=== PATIENT | female | born 1955 | race Caucasian/White ===

== ENCOUNTER → 2017-01-28 | Outpatient (CLI) | payer OTHER ==
--- NOTE | 2017-01-28 12:56 | US ---
EXAMINATION TYPE: US pelvic complete DATE OF EXAM: 01/28/2017 11:20 AM COMPARISON: NONE CLINICAL HISTORY: 61-year-old female R10.2 Pelvic Pain. Patient reports on/off pelvic pain TECHNIQUE: Multiple transabdominal sonographic images of the pelvis are obtained. Date of LMP: age 39 FINDINGS: Uterus: Anteverted measuring 7.0 x 1.7 x 2.9 cm Endometrial Stripe: 0.3 cm thin, within normal limits. Right Ovary: 2.1 x 1.2 x 1.4 cm for a volume of 1.9 mL. Left Ovary: 1.9 x 1.4 x 1.9 cm for a volume of 2.5 mL. No evident adnexal abnormality or cul-de-sac free fluid. IMPRESSION: Thin endometrial stripe and small postmenopausal ovaries. No specific abnormality seen on transabdomi nal scanning.
--- NOTE | 2017-01-31 08:04 | MM ---
Reason for exam: screening (asymptomatic). Baseline mammogram. History: Patient is postmenopausal. Took estrogen for 3 years beginning at age 36. Took progesterone for 3 years beginning at age 36. Physical Findings: Nurse did not find any significant physical abnormalities on exam. MG 3D Screening Mammo W/Cad Bilateral CC and MLO view(s) were taken. There are scattered fibroglandular densities. Nodular asymmetry subareolar anterior left breast not clearly seen on MLO view. Skin calcifications on the left breast. Otherwise, no discrete abnormality. These results were verbally communicated with the patient and result sheet given to the patient on 01/28/17. ASSESSMENT: Incomplete: need additional imaging evaluation, BI-RAD 0 RECOMMENDATION: Special view mammogram of the left breast. If lesion persists on supplemental views, image directed ultrasound is recommended. [facility] will attempt to contact patient to return for supplemental views and ultrasound if indicated.
--- NOTE | 2017-01-31 08:06 | MM ---
Reason for exam: additional evaluation requested from abnormal screening. History: Patient is postmenopausal. Took estrogen for 3 years beginning at age 36. Took progesterone for 3 years beginning at age 36. Physical Findings: Breast exam preformed at baseline screening. MG 3D Work Up W/Cad LT ML view(s) were taken of the left breast. There are scattered fibroglandular densities. A 6mm ovoid mass is subtly seen on the true lateral along the retroareolar plane approximately 5-6 o'clock. These results were verbally communicated with the patient and result sheet given to the patient on 01/28/17. ASSESSMENT: Incomplete: need additional imaging evaluation, BI-RAD 0 RECOMMENDATION: Ultrasound of the left breast. (periareolar 5-6 o'clock)
--- NOTE | 2017-01-31 08:09 | USB ---
Reason for exam: additional evaluation requested from abnormal screening. History: Patient is postmenopausal. Took estrogen for 3 years beginning at age 36. Took progesterone for 3 years beginning at age 36. US Breast Workup Limited LT Left breast ultrasound demonstrates ducts at the posterior nipple. No solid or cystic mass is seen. A 6 month follow mammogram recommended. These results were verbally communicated with the patient and result sheet given to the patient on 01/28/17. ASSESSMENT: Probably benign, BI-RAD 3 RECOMMENDATION: Follow-up diagnostic mammogram of the left breast in 6 months.
== END ==
LOC: RADUSWWP 08:48
PROVIDERS: ATTEND Family Medicine
DX: R10.2 Pelvic and perineal pain (principal); N63 Unspecified lump in breast
CPT/HCPCS: 77063; 76856; 76642; G0202; G0206; G0279

== ENCOUNTER 2017-10-08 16:51 | Emergency (ER) | payer BC, OTHER ==
[2017-10-08 17:04] VITALS: BP 159/67; PULSE 82; RESP 20; TEMP 97.8
--- NOTE | 2017-10-08 17:42 | ED ---
Anxiety HPI - General Chief Complaint: Anxiety Stated Complaint: Hypertension Time Seen by Provider: 10/08/17 17:16 Source: patient, RN notes reviewed Mode of arrival: ambulatory - History of Present Illness Initial Comments: 62-year-old female presents emergency Department chief complaint of anxiety. Patient states that she has a history of anxiety states she has not had sick medication several years. Patient states that she cannot fall asleep last night Worrying about things states that she will probably fell asleep and woke up cannot sleep she was wearing a can. She states she is concerned physician when checked her blood pressure blood pressure is mildly elevated. Patient was in the hospital within this last month for chest pain had complete workup including stress test. Patient findings. Patient states she has no chest pain or shortness breath no headache no dizziness no fever no chills. She states she just morning and states that when she went to the drugstore to check her blood pressure the pharmacist worried her more. Patient states that she fell that she come here to get some help. Patient denies suicidal ideation or homicidal ideation. - Related Data Home Medications: Home Medications Medication Instructions Recorded Confirmed Glucosam/Darnell-Msm1/C/Zach/Bosw 1 tab PO DAILY 09/08/17 09/08/17 [Glucosamine-Chondroitin Tablet] L.acidoph,Paracasei, B.lactis 1 cap PO DAILY 09/08/17 09/08/17 [Probiotic] Multivitamin [Multivitamins Adult 1 tab PO DAILY 09/08/17 09/08/17 Gummies] Previous Rx's Medication Instructions Recorded Levothyroxine Sodium [Synthroid] 50 mcg PO DAILY@0630 #30 tab 09/09/17 Acetaminophen Tab [Tylenol] 500 mg PO Q6HR PRN tab 09/10/17 ALPRAZolam [Xanax] 0.5 mg PO BID PRN #10 tablet 10/08/17 Allergies/Adverse Reactions: Allergies Allergy/AdvReac Type Severity Reaction Status Date / Time seasonal allergies AdvReac Cough Uncoded 10/08/17 17:04 Review of Systems ROS Statement: Those systems with pertinent positive or pertinent negative responses have been documented in the HPI. ROS Other: All systems not noted in ROS Statement are negative. Past Medical History Past Medical History: Hypertension, Memory Impairment, Osteoarthritis (OA) Additional Past Medical History / Comment(s): One episode of high B/P never treated, large lump left breast, chronic neck pain History of Any Multi-Drug Resistant Organisms: None Reported Past Surgical History: Section Additional Past Surgical History / Comment(s): X3, rectal surgery for an infection Past Anesthesia/Blood Transfusion Reactions: No Reported Reaction Past Psychological History: Anxiety Smoking Status: Former smoker Past Alcohol Use History: Occasional Past Drug Use History: None Reported - Past Family History Mother Family Medical History: Coronary Artery Disease (CAD) Sister(s) Family Medical History: AFIB, Myocardial Infarction ([place]) Father Family Medical History: Cancer Additional Family Medical History / Comment(s): from pancreatic CA General Exam Limitations: no limitations General appearance: alert, in no apparent distress Head exam: Present: atraumatic, normocephalic, normal inspection Eye exam: Present: normal appearance, PERRL, EOMI. Absent: scleral icterus, conjunctival injection, periorbital swelling ENT exam: Present: normal exam, normal oropharynx, mucous membranes moist, TM's normal bilaterally, normal external ear exam Neck exam: Present: normal inspection, full ROM. Absent: tenderness, meningismus, lymphadenopathy Respiratory exam: Present: normal lung sounds bilaterally. Absent: respiratory distress, wheezes, rales, rhonchi, stridor Cardiovascular Exam: Present: regular rate, normal rhythm, normal heart sounds. Absent: systolic murmur, diastolic murmur, rubs, gallop, clicks Neurological exam: Present: alert, oriented X3, CN II-XII intact Psychiatric exam: Present: anxious Skin exam: Present: warm, dry, intact, normal color. Absent: rash Course Vital Signs 10/08/17 17:01 Temperature 97.8 F Pulse Rate 82 Respiratory 20 Rate Blood Pressure 159/67 O2 Sat by Pulse 98 Oximetry Medical Decision Making - Medical Decision Making 62-year-old female presented emergency department for anxiety. Patient be discharged with Xanax. Patient requests EKG which was unchanged from prior. Patient had complete cardiac workup with stress test within the beginning of this month. Patient has no chest pain or shortness breath. Patient was discharged at this time. 10/08/17 17:40 EKG performed at 17:28 normal sinus rhythm with rate 69 TN 146 QRS 88 QT/QTC 380 /4:15 Disposition Clinical Impression: Acute anxiety Disposition: HOME SELF-CARE Condition: Stable Instructions: Generalized Anxiety Disorder (ED) Additional Instructions: Please return to the Emergency Department if symptoms worsen or any other concerns. Prescriptions: ALPRAZolam [Xanax] 0.5 mg PO BID PRN #10 tablet PRN Reason: Anxiety Referrals: Fabiola Collier MD [Primary Care Provider] - 1-2 days Time of Disposition: 17:41
== END 2017-10-08 17:48 | disposition home or self-care (01) ==
LOC: EC 16:51
DX: F41.9 Anxiety disorder, unspecified (principal); M19.90 Unspecified osteoarthritis, unspecified site; I10 Essential (primary) hypertension; Z82.49 Family history of ischemic heart disease and other diseases of the circulatory system; Z91.09 Other allergy status, other than to drugs and biological substances; Z87.891 Personal history of nicotine dependence; Z79.899 Other long term (current) drug therapy
CPT/HCPCS: 93005; 99283

== ENCOUNTER 2018-08-13 16:23 | Emergency (ER) | payer OTHER ==
[2018-08-13 16:31] VITALS: RESP 18
--- NOTE | 2018-08-13 16:42 | ED ---
Chest Pain HPI - General Chief Complaint: Chest Pain Stated Complaint: chest pain Time Seen by Provider: 08/13/18 16:23 Source: patient, EMS, RN notes reviewed, old records reviewed Mode of arrival: EMS Limitations: no limitations - History of Present Illness Initial Comments: This a 63-year-old female who was brought by EMS with complaints of left-sided chest pain. She had 2 episodes yesterday that were brief and sharp mild/ moderate in severity. She also had another episode today. EMS was called last night but she refused transport at that time. She currently is pain-free she has no fevers chills nausea vomiting sweats. She has been doing a lot of upper body activity she is primarily right-handed but does do a lot of activity with her left arm. MD Complaint: chest pain - Related Data Home Medications Medication Instructions Recorded Confirmed L.acidoph,Paracasei, B.lactis 1 cap PO DAILY 09/08/17 10/08/17 [Probiotic] Levothyroxine Sodium [Synthroid] 50 mcg PO DAILY 10/08/17 10/08/17 Previous Rx's Medication Instructions Recorded ALPRAZolam [Xanax] 0.5 mg PO BID PRN #10 tablet 10/08/17 Ibuprofen [Motrin] 600 mg PO Q6HR PRN #20 tab 08/13/18 Allergies Allergy/AdvReac Type Severity Reaction Status Date / Time seasonal allergies AdvReac Cough Uncoded 08/13/18 16:30 Review of Systems ROS Statement: Those systems with pertinent positive or pertinent negative responses have been documented in the HPI. ROS Other: All systems not noted in ROS Statement are negative. EKG Findings - EKG Results: EKG: interpreted by CHRIS, sinus rhythm (Sinus bradycardia rate of 59. Interval 138 QRS duration 86 QT since QTC 398/[address]-T wave changes) Past Medical History Past Medical History: Hypertension, Memory Impairment, Osteoarthritis (OA) Additional Past Medical History / Comment(s): One episode of high B/P never treated, large lump left breast, chronic neck pain History of Any Multi-Drug Resistant Organisms: None Reported Past Surgical History: Section Additional Past Surgical History / Comment(s): X3, rectal surgery for an infection Past Anesthesia/Blood Transfusion Reactions: No Reported Reaction Past Psychological History: Anxiety Smoking Status: Former smoker Past Alcohol Use History: Occasional Past Drug Use History: None Reported - Past Family History Mother Family Medical History: Coronary Artery Disease (CAD) Sister(s) Family Medical History: AFIB, Myocardial Infarction ([place]) Father Family Medical History: Cancer Additional Family Medical History / Comment(s): from pancreatic CA General Exam - General Exam Comments Initial Comments: This is a well-developed well-nourished awake alert oriented 3 female Limitations: no limitations General appearance: alert, in no apparent distress Head exam: Present: atraumatic, normocephalic, normal inspection Eye exam: Present: normal appearance, PERRL, EOMI. Absent: scleral icterus, conjunctival injection, periorbital swelling ENT exam: Present: normal exam, mucous membranes moist Neck exam: Present: normal inspection, tenderness, full ROM (Tenderness of the left lateral neck musculature no spinous process tenderness. No step-off no crepitation.). Absent: meningismus, lymphadenopathy Respiratory exam: Present: normal lung sounds bilaterally, chest wall tenderness (Tennis palpation on the left anterior axillary line no step-off or crepitation mostly to the pectoralis muscle. No deformity no bruising). Absent : respiratory distress, wheezes, rales, rhonchi, stridor Cardiovascular Exam: Present: regular rate, normal rhythm, normal heart sounds. Absent: systolic murmur, diastolic murmur, rubs, gallop, clicks GI/Abdominal exam: Present: soft, normal bowel sounds. Absent: distended, tenderness, guarding, rebound, rigid Extremities exam: Present: normal inspection, full ROM, normal capillary refill. Absent: tenderness, pedal edema, joint swelling, calf tenderness Back exam: Present: normal inspection Neurological exam: Present: alert, oriented X3, CN II-XII intact Psychiatric exam: Present: normal affect, normal mood Skin exam: Present: warm, dry, intact, normal color. Absent: rash Course Vital Signs 08/13/18 16:26 Temperature 98.6 F Pulse Rate 69 Respiratory 18 Rate Blood Pressure 128/76 O2 Sat by Pulse 98 Oximetry Chest Pain MDM - MDM I did review the imaging and report no acute findings. Patient remained symptom -free the presentation is consistent with musculoskeletal chest pain. She will be discharged on anti-inflammatories she is a follow-up with her doctor and return when necessary. Disposition Clinical Impression: Chest wall syndrome, Myofascial pain Disposition: HOME SELF-CARE Condition: Good Instructions: Chest Wall Pain (ED), Musculoskeletal Pain (ED) Prescriptions: Ibuprofen [Motrin] 600 mg PO Q6HR PRN #20 tab PRN Reason: Pain Is patient prescribed a controlled substance at d/c from ED?: No Referrals: Fabiola Collier MD [Primary Care Provider] - 1-2 days
[2018-08-13 16:51] LABS: Basophils % (A) 0 %; Eosinophils # (A) 0.1 k/uL (0-0.7); Eosinophils % (A) 2 %; HCT 42.6 % (34.0-46.0); Lymphocytes # (A) 1.5 k/uL (1.0-4.8); Lymphocytes % (A) 26 %; MCH 27.6 pg (25.0-35.0); MCHC 32.9 g/dL (31.0-37.0); Mean Platelet Volume 7.3; Monocytes # (A) 0.3 k/uL (0-1.0); Monocytes % (A) 6 %; Neutrophils # (A) 3.7 k/uL (1.3-7.7); Neutrophils % (A) 65 %; Platelet Count 193 k/uL (150-450); RBC 5.08 m/uL (3.80-5.40); RDW 12.6 % (11.5-15.5); WBC 5.7 k/uL (3.8-10.6)
[2018-08-13 17:01] LABS: ALT 25 U/L (9-52); AST 24 U/L (14-36); Albumin 4.2 g/dL (3.5-5.0); Alkaline Phosphatase 63 U/L (38-126); Anion Gap 7 mmol/L; Blood Urea Nitrogen 16 mg/dL (7-17); Carbon Dioxide 28 mmol/L (22-30); Chloride 106 mmol/L (98-107); Glucose 99 mg/dL (74-99); Potassium 4.2 mmol/L (3.5-5.1); Sodium 141 mmol/L (137-145); Total Bilirubin 0.9 mg/dL (0.2-1.3); Total Protein 7.1 g/dL (6.3-8.2)
--- NOTE | 2018-08-13 17:02 | XR ---
EXAMINATION TYPE: XR chest 2V DATE OF EXAM: 08/13/2018 COMPARISON: 09/08/2017 INDICATION: Chest pain and shortness of breath TECHNIQUE: Frontal and lateral views of the chest are obtained. FINDINGS: The heart size is normal. The pulmonary vasculature is normal. The lungs are clear. IMPRESSION: 1. No acute pulmonary process.
[2018-08-13 17:06] LABS: Creatine Kinase 59 U/L (30-135)
[2018-08-13 17:13] LABS: D-Dimer 0.34 mg/L FEU (<0.60)
[2018-08-13 17:16] LABS: Partial Thromboplastin Time 19.3 sec (22.0-30.0)
[2018-08-13 17:19] LABS: Creatine Kinase MB 0.8 ng/mL (0.0-2.4); Troponin I <0.012 ng/mL (0.000-0.034)
[2018-08-13 18:17] VITALS: BP 118/69; PULSE 62; TEMP 98.1
== END 2018-08-13 18:15 | disposition home or self-care (01) ==
LOC: EC 16:23
DX: R07.1 Chest pain on breathing (principal); M79.18 Myalgia, other site; Z87.891 Personal history of nicotine dependence; Z79.899 Other long term (current) drug therapy; Z91.048 Other nonmedicinal substance allergy status; Z82.49 Family history of ischemic heart disease and other diseases of the circulatory system
CPT/HCPCS: 36415; 71046; 80053; 82550; 82553; 83735; 83880; 84484; 85025; 85379; 85610; 85730; 93005; 99285

== ENCOUNTER 2019-07-21 03:59 | Observation (INO) | payer OTHER ==
--- NOTE | 2019-07-21 04:09 | ED ---
General Adult HPI - General Stated complaint: Chest Pain Time Seen by Provider: 07/21/19 04:06 - History of Present Illness Initial comments: Dictation was produced using [employer] dictation software. please excuse any grammatical, word or spelling errors. Chief Complaint: 64-year-old female presents with chief complaint of chest pain History of Present Illness: Patient is a 64-year-old female presents today via EMS for chest pain. Patient has past medical history of hypertension. Patient states she had episode of chest pain. She woke up in her sleep to walk to the bathroom when she began experiencing a dull chest pain to the left anterior chest. She states it radiated to the left upper extremity. Patient has been having a lot of abdominal bloating recently. Patient has had cardiac stress test over those most recently 2 years ago. Patient is concerned called EMS. Patient states her symptoms lasted only for a couple minutes and resolved on its own. Patient that she was mildly diaphoretic during the event. Denies any chest pain currently. Patient otherwise feels well. She is concerned she is may be having heart attack. Prehospital EKG was benign. Patient is given aspirin via EMS. The ROS documented in this emergency department record has been reviewed and confirmed by me. Those systems with pertinent positive or negative responses have been documented in the HPI. All other systems are other negative and/or noncontributory. PHYSICAL EXAM: General Impression: Alert and oriented x3, not in acute distress HEENT: Normocephalic atraumatic, extra-ocular movements intact, pupils equal and reactive to light bilaterally, mucous membranes moist. Cardiovascular: Heart regular rate and rhythm, S1&S2 audible, no murmurs, rubs or gallops Chest: Lungs clear to auscultation bilaterally, no rhonchi, no wheeze, no rales Abdomen: Bowel sounds present, abdomen soft, non-tender, non-distended, no organomegaly Musculoskeletal: Pulses present and equal in all extremities, no peripheral edema Motor: no focal deficits noted Neurological: CN II-XII grossly intact, no focal motor or sensory deficits noted Skin: Intact with no visualized rashes Psych: Normal affect and mood ED course: 64-year-old female with chief complaint of chest pain. As upon arrival are within acceptable limits. Clinical presentation consistent with atypical chest pain with typical features. Return evaluation obtained. CBC, coag panel, metabolic panel was obtained showing no acute processes. Cardiac enzyme, first set is unremarkable. Patient still continues to be pain-free. Given patient's comorbidities and clinical presentation we will admit patient to observation for serial troponins and cardiology consultation. She received an aspirin prior to transfer to the emergency department. Patient understandable agreeable to disposition. EKG interpretation: Ventricular rate 62, normal sinus rhythm, MA interval 140, QS 92, QTC 46. No MA prolongation, no QTC prolongation, no ST or T-wave changes noted. Overall, this EKG is unremarkable - Related Data Home Medications Medication Instructions Recorded Confirmed L.acidoph,Paracasei, B.lactis 1 cap PO DAILY 09/08/17 10/08/17 [Probiotic] Levothyroxine Sodium [Synthroid] 50 mcg PO DAILY 10/08/17 10/08/17 Previous Rx's Medication Instructions Recorded ALPRAZolam [Xanax] 0.5 mg PO BID PRN #10 tablet 10/08/17 Ibuprofen [Motrin] 600 mg PO Q6HR PRN #20 tab 08/13/18 Allergies Allergy/AdvReac Type Severity Reaction Status Date / Time seasonal allergies AdvReac Cough Uncoded 08/13/18 16:30 Review of Systems ROS Statement: Those systems with pertinent positive or pertinent negative responses have been documented in the HPI. ROS Other: All systems not noted in ROS Statement are negative. Past Medical History Past Medical History: Hypertension, Memory Impairment, Osteoarthritis (OA) Additional Past Medical History / Comment(s): One episode of high B/P never treated, large lump left breast, chronic neck pain History of Any Multi-Drug Resistant Organisms: None Reported Past Surgical History: Section Additional Past Surgical History / Comment(s): X3, rectal surgery for an infection Past Anesthesia/Blood Transfusion Reactions: No Reported Reaction Past Psychological History: Anxiety Smoking Status: Former smoker Past Alcohol Use History: Occasional Past Drug Use History: None Reported - Past Family History Mother Family Medical History: Coronary Artery Disease (CAD) Sister(s) Family Medical History: AFIB, Myocardial Infarction ([place]) Father Family Medical History: Cancer Additional Family Medical History / Comment(s): from pancreatic CA Course Vital Signs 07/21/19 07/21/19 07/21/19 04:08 04:12 04:55 Temperature 98.2 F Pulse Rate 68 56 L Pulse Rate [ 68 Radio Announcer ] Respiratory 18 20 Rate Blood Pressure 140/79 120/65 O2 Sat by Pulse 97 97 Oximetry Medical Decision Making - Lab Data Result diagrams: 07/21/19 04:07 07/21/19 04:07 Lab Results 07/21/19 07/21/19 07/21/19 Range/Units 04:07 04:07 04:07 WBC 5.1 (3.8-10.6) k/uL RBC 5.02 (3.80-5.40) m/uL Hgb 14.0 (11.4-16.0) gm/dL Hct 42.9 (34.0-46.0) % MCV 85.3 (80.0-100.0) fL MCH 27.9 (25.0-35.0) pg MCHC 32.7 (31.0-37.0) g/dL RDW 12.8 (11.5-15.5) % Plt Count 204 (150-450) k/uL Neutrophils % 48 % Lymphocytes % 36 % Monocytes % 7 % Eosinophils % 4 % Basophils % 1 % Neutrophils # 2.5 (1.3-7.7) k/uL Lymphocytes # 1.9 (1.0-4.8) k/uL Monocytes # 0.4 (0-1.0) k/uL Eosinophils # 0.2 (0-0.7) k/uL Basophils # 0.1 (0-0.2) k/uL PT 10.0 (9.0-12.0) sec INR 0.9 (<1.2) APTT 22.3 (22.0-30.0) sec Sodium 141 (137-145) mmol/L Potassium 4.0 (3.5-5.1) mmol/L Chloride 108 H (98-107) mmol/L Carbon Dioxide 24 (22-30) mmol/L Anion Gap 9 mmol/L BUN 22 H (7-17) mg/dL Creatinine 0.89 (0.52-1.04) mg/dL Est GFR (CKD-EPI)AfAm 79 (>60 ml/min/1.73 sqM) Est GFR (CKD-EPI)NonAf 69 (>60 ml/min/1.73 sqM) Glucose 113 H (74-99) mg/dL Calcium 9.7 (8.4-10.2) mg/dL Magnesium 2.1 (1.6-2.3) mg/dL Total Bilirubin 0.7 (0.2-1.3) mg/dL AST 43 H (14-36) U/L ALT 61 H (9-52) U/L Alkaline Phosphatase 72 (38-126) U/L Troponin I (0.000-0.034) ng/mL Total Protein 6.7 (6.3-8.2) g/dL Albumin 3.9 (3.5-5.0) g/dL 07/21/19 Range/Units 04:07 WBC (3.8-10.6) k/uL RBC (3.80-5.40) m/uL Hgb (11.4-16.0) gm/dL Hct (34.0-46.0) % MCV (80.0-100.0) fL MCH (25.0-35.0) pg MCHC (31.0-37.0) g/dL RDW (11.5-15.5) % Plt Count (150-450) k/uL Neutrophils % % Lymphocytes % % Monocytes % % Eosinophils % % Basophils % % Neutrophils # (1.3-7.7) k/uL Lymphocytes # (1.0-4.8) k/uL Monocytes # (0-1.0) k/uL Eosinophils # (0-0.7) k/uL Basophils # (0-0.2) k/uL PT (9.0-12.0) sec INR (<1.2) APTT (22.0-30.0) sec Sodium (137-145) mmol/L Potassium (3.5-5.1) mmol/L Chloride (98-107) mmol/L Carbon Dioxide (22-30) mmol/L Anion Gap mmol/L BUN (7-17) mg/dL Creatinine (0.52-1.04) mg/dL Est GFR (CKD-EPI)AfAm (>60 ml/min/1.73 sqM) Est GFR (CKD-EPI)NonAf (>60 ml/min/1.73 sqM) Glucose (74-99) mg/dL Calcium (8.4-10.2) mg/dL Magnesium (1.6-2.3) mg/dL Total Bilirubin (0.2-1.3) mg/dL AST (14-36) U/L ALT (9-52) U/L Alkaline Phosphatase (38-126) U/L Troponin I <0.012 (0.000-0.034) ng/mL Total Protein (6.3-8.2) g/dL Albumin (3.5-5.0) g/dL Disposition Clinical Impression: Chest pain Disposition: ADMITTED IP TO THIS HOSP Condition: Fair Referrals: Fabiola Collier MD [Primary Care Provider] - 1-2 days Decision Time: 05:06
[2019-07-21 04:17] LABS: Basophils # (A) 0.1 k/uL (0-0.2); Basophils % (A) 1 %; Eosinophils # (A) 0.2 k/uL (0-0.7); Eosinophils % (A) 4 %; HCT 42.9 % (34.0-46.0); Lymphocytes # (A) 1.9 k/uL (1.0-4.8); Lymphocytes % (A) 36 %; MCH 27.9 pg (25.0-35.0); MCHC 32.7 g/dL (31.0-37.0); MCV 85.3 fL (80.0-100.0); Monocytes # (A) 0.4 k/uL (0-1.0); Monocytes % (A) 7 %; Neutrophils # (A) 2.5 k/uL (1.3-7.7); Neutrophils % (A) 48 %; Platelet Count 204 k/uL (150-450); RBC 5.02 m/uL (3.80-5.40); RDW 12.8 % (11.5-15.5); WBC 5.1 k/uL (3.8-10.6)
--- NOTE | 2019-07-21 04:21 | XR ---
EXAMINATION TYPE: XR chest 2V DATE OF EXAM: 07/21/2019 COMPARISON: 08/13/2018 HISTORY: Chest pain TECHNIQUE: Frontal and lateral views of the chest are obtained. FINDINGS: Heart and mediastinum are normal. Lungs are clear. Diaphragm is normal. There are chest le ads. Bony thorax is intact. IMPRESSION: Normal chest. No change.
[2019-07-21 04:26] LABS: Albumin 3.9 g/dL (3.5-5.0); Calcium 9.7 mg/dL (8.4-10.2); INR 0.9 (<1.2); Magnesium 2.1 mg/dL (1.6-2.3); Partial Thromboplastin Time 22.3 sec (22.0-30.0); Total Bilirubin 0.7 mg/dL (0.2-1.3); Total Protein 6.7 g/dL (6.3-8.2)
[2019-07-21] MEDS ORDERED: NITROGLYCERIN SL TABS 0.4 MG TAB SUBLINGUAL PRN (05:04)
--- NOTE | 2019-07-21 10:05 | P.CRDCN ---
History of Present Illness Consult date: 07/21/19 Chief complaint: Chest pain History of present illness: This is a pleasant 64-year-old female patient who is somewhat is a poor historian was brought to the emergency room by ambulance because of chest discomfort. The patient does have a past medical history significant for hypertension. She underwent a heart catheterization 2 years ago after she presented with chest discomfort and after abnormal stress test and the heart catheterization revealed normal coronaries. This time she describes discomfort in the mid of the chest, as a sharp kind of discomfort, without any radiation to the arm or neck or shoulders, and without any associated symptoms of shortness of breath, dizziness, heart racing, or syncope. No sweating. The EKG showed sinus rhythm without any significant ST or T-wave abnormalities. The cardiac enzymes were checked. We only have troponin at the first set and that came in to be unremarkable. The chest x-ray did not show any acute abnormalities. At this point acute coronary event to be ruled out. Also will obtain an echocardiogram was Doppler. If acute coronary event was ruled out the patient possibly can be discharged home and follow-up with Dr. Dr. Espinoza as an outpatient. Past Medical History Past Medical History: Hypertension, Memory Impairment, Osteoarthritis (OA) Additional Past Medical History / Comment(s): large lump left breast, chronic neck pain History of Any Multi-Drug Resistant Organisms: None Reported Past Surgical History: Section Additional Past Surgical History / Comment(s): X3, rectal surgery for an infection Past Anesthesia/Blood Transfusion Reactions: No Reported Reaction Past Psychological History: Anxiety Smoking Status: Former smoker Past Alcohol Use History: Occasional Past Drug Use History: None Reported - Past Family History Mother Family Medical History: Coronary Artery Disease (CAD) Sister(s) Family Medical History: AFIB, Myocardial Infarction ([place]) Father Family Medical History: Cancer Additional Family Medical History / Comment(s): from pancreatic CA Medications and Allergies Home Medications Medication Instructions Recorded Confirmed Type Levothyroxine Sodium [Synthroid] 50 mcg PO DAILY 10/08/17 07/21/19 History Bacillus Coagulans [Digestive 1 tab PO HS 07/21/19 07/21/19 History Advantage] Metoprolol Tartrate [Lopressor] 25 mg PO BID 07/21/19 07/21/19 History PARoxetine [Paxil] 10 mg PO DAILY 07/21/19 07/21/19 History Allergies Allergy/AdvReac Type Severity Reaction Status Date / Time seasonal allergies AdvReac Cough Uncoded 07/21/19 08:08 Physical Exam Vitals: Vital Signs Temp Pulse Pulse Resp BP BP Pulse Ox 07/21/19 05:29 97.9 F 63 18 139/63 93 L 07/21/19 04:55 56 L 20 120/65 97 07/21/19 04:12 68 07/21/19 04:08 98.2 F 68 18 140/79 97 Intake and Output 07/20/19 07/21/19 07/21/19 22:59 06:59 14:59 Other: Weight 68.039 kg - Constitutional General appearance: no acute distress - Respiratory Respiratory: bilateral: CTA - Cardiovascular Rhythm: regular Heart sounds: normal: S1, S2 Results 07/21/19 04:07 07/21/19 04:07 Cardiac Enzymes 07/21/19 07/21/19 Range/Units 04:07 04:07 AST 43 H (14-36) U/L Troponin I <0.012 (0.000-0.034) ng/mL Coagulation 07/21/19 Range/Units 04:07 PT 10.0 (9.0-12.0) sec APTT 22.3 (22.0-30.0) sec CBC 07/21/19 Range/Units 04:07 WBC 5.1 (3.8-10.6) k/uL RBC 5.02 (3.80-5.40) m/uL Hgb 14.0 (11.4-16.0) gm/dL Hct 42.9 (34.0-46.0) % Plt Count 204 (150-450) k/uL Comprehensive Metabolic Panel 07/21/19 Range/Units 04:07 Sodium 141 (137-145) mmol/L Potassium 4.0 (3.5-5.1) mmol/L Chloride 108 H (98-107) mmol/L Carbon Dioxide 24 (22-30) mmol/L BUN 22 H (7-17) mg/dL Creatinine 0.89 (0.52-1.04) mg/dL Glucose 113 H (74-99) mg/dL Calcium 9.7 (8.4-10.2) mg/dL AST 43 H (14-36) U/L ALT 61 H (9-52) U/L Alkaline Phosphatase 72 (38-126) U/L Total Protein 6.7 (6.3-8.2) g/dL Albumin 3.9 (3.5-5.0) g/dL Current Medications Generic Name Dose Route Start Last Admin Trade Name Freq PRN Reason Stop Dose Admin Aspirin 325 mg 07/22/19 09:00 Aspirin PO DAILY TRINI Nitroglycerin 0.4 mg 07/21/19 05:04 Nitrostat SUBLINGUAL Q5M PRN Chest Pain Intake and Output 07/20/19 07/21/19 07/21/19 22:59 06:59 14:59 Other: Weight 68.039 kg 07/21/19 04:07 07/21/19 04:07 Assessment and Plan Assessment: Assessment #1 atypical chest discomfort #2 hypertension Plan Acute coronary syndrome to be ruled out. Follow-up with the serial cardiac enzymes Obtain an echocardiogram was Doppler Follow-up with the patient
[2019-07-21] MEDS: LEVOTHYROXINE 50 MCG TAB PO SCH (11:52)
[2019-07-21] MEDS: METOPROLOL TARTRATE 25 MG TAB PO SCH ×2 (11:52→20:31)
[2019-07-21] MEDS ORDERED: HEPARIN SODIUM,PORCINE 5,000 UNIT/ML 1 ML VIAL IV ONE (12:39)
[2019-07-21] MEDS ORDERED: HEPARIN SODIUM,PORCINE 5,000 UNIT/ML 1 ML VIAL IV PRN (12:39)
[2019-07-21] MEDS ORDERED: HEPARIN SOD,PORK IN 0.45% NACL 25,000 UNIT in 0.45% NACL 1 250ML.BAG IV SCH (12:45)
[2019-07-21 13:02] LABS: INR 0.9 (<1.2); Partial Thromboplastin Time 23.2 sec (22.0-30.0)
[2019-07-21 13:19] LABS: Basophils # (A) 0.1 k/uL (0-0.2); Basophils % (A) 1 %; Eosinophils # (A) 0.1 k/uL (0-0.7); Eosinophils % (A) 3 %; HCT 41.1 % (34.0-46.0); HGB 13.6 gm/dL (11.4-16.0); Lymphocytes # (A) 1.5 k/uL (1.0-4.8); Lymphocytes % (A) 28 %; MCH 28.6 pg (25.0-35.0); MCHC 33.2 g/dL (31.0-37.0); MCV 86.2 fL (80.0-100.0); Mean Platelet Volume 6.8; Monocytes # (A) 0.3 k/uL (0-1.0); Monocytes % (A) 5 %; Neutrophils # (A) 3.2 k/uL (1.3-7.7); Neutrophils % (A) 61 %; Platelet Count 205 k/uL (150-450); RBC 4.77 m/uL (3.80-5.40); RDW 12.5 % (11.5-15.5); WBC 5.1 k/uL (3.8-10.6)
--- NOTE | 2019-07-21 14:35 | ECHOF ---
Referral Reason:new onset chf, eval lv fxn MEASUREMENTS -------- HEIGHT: 157.5 cm WEIGHT: 68.0 kg BP: 129/63 RVIDd: 3.0 cm (< 3.3) IVSd: 1.4 cm (0.6 - 1.1) LVIDd: 3.3 cm (3.9 - 5.3) LVPWd: 1.7 cm (0.6 - 1.1) IVSs: 1.5 cm LVIDs: 1.4 cm LVPWs: 1.9 cm LAESV Index (A-L): 30.01 ml/m Ao Diam: 3.1 cm (2.0 - 3.7) AV Cusp: 2.2 cm (1.5 - 2.6) MV EXCURSION: 13.059 mm (> 18.000) MV EF SLOPE: 79 mm/s (70 - 150) EPSS: 0.6 cm MV E Jori: 1.00 m/s MV DecT: 178 ms MV A Jori: 0.80 m/s MV E/A Ratio: 1.24 AR PHT: 507 ms RAP: 5.00 mmHg RVSP: 22.80 mmHg FINDINGS -------- Sinus rhythm. This was a technically good study. The left ventricular size is normal. There is moderate concentric left ventricular hypertrophy. O verall left ventricular systolic function is normal with, an EF between 65 - 70 %. The diastolic fi lling pattern is normal for the age of the patient 11.39. The right ventricle is normal in size. LA is midly dilated 29-33ml/m2. The right atrial size is normal. Interatrial and interventricular septum intact. The aortic valve is trileaflet and appears structurally normal. There is moderate aortic regurgitat ion. There is no evidence of aortic stenosis. There is trace to mild mitral regurgitation. Mild tricuspid regurgitation present. There is no evidence of pulmonary hypertension. The right v entricular systolic pressure, as measured by Doppler, is 22.80mmHg. There is no pulmonic regurgitation present. The aortic root size is normal. Normal inferior vena cava with normal inspiratory collapse consistent with estimated right atrial pre ssure of 5 mmHg. Echo free space represents a pericardial fat pad. There is no pericardial effusion. CONCLUSIONS -------- 1. Sinus rhythm. 2. This was a technically good study. 3. The left ventricular size is normal. 4. There is moderate concentric left ventricular hypertrophy. 5. Overall left ventricular systolic function is normal with, an EF between 65 - 70 %. 6. The diastolic filling pattern is normal for the age of the patient 11.39 7. The right ventricle is normal in size. 8. LA is midly dilated 29-33ml/m2. 9. The right atrial size is normal. 10. Interatrial and interventricular septum intact. 11. The aortic valve is trileaflet and appears structurally normal. 12. There is moderate aortic regurgitation. 13. There is no evidence of aortic stenosis. 14. There is trace to mild mitral regurgitation. 15. Mild tricuspid regurgitation present. 16. There is no evidence of pulmonary hypertension. 17. The right ventricular systolic pressure, as measured by Doppler, is 22.80mmHg. 18. There is no pulmonic regurgitation present. 19. The aortic root size is normal. 20. Normal inferior vena cava with normal inspiratory collapse consistent with estimated right atrial pressure of 5 mmHg. 21. Echo free space represents a pericardial fat pad. 22. There is no pericardial effusion. [employer] PREPARER: Shameka Trevino [facility]
--- NOTE | 2019-07-22 01:03 | P.HPIM ---
History of Present Illness H&P Date: 07/21/19 Chief Complaint: Chest pain Patient is a 64-year-old female with a known history of hypertension, osteoarthritis and memory impairment came to ER with complaints of chest pain. Patient says that at around 3 AM last night she had an episode of chest pain when she woke up to use the bathroom. Patient has been having on and off chest pains usually. Along with the chest read patient felt left arm numbness which made her to come to Hospital. Pain is mainly sharp lasting about a few minutes. No associated nausea vomiting or abdominal pain. Patient did have mild diaphoresis. No headache or dizziness or lightheadedness. EMS was called and patient was brought to the hospital. Denied any recent illnesses. No cough or sputum production. No recent travel. EKG showed normal sinus rhythm without any significant ST-T wave changes. Troponin 0.012, 0.029 and 0.020 Chest x-ray showed no acute cardiopulmonary process. D-dimer not elevated. Patient says that she had stress test done about 2 years ago Review of Systems Constitutional: Patient denies any fever or chills . No generalized weakness or weight loss. Abdomen: Patient denied nausea vomiting and diarrhea and abdominal pain. Cardiovascular: Patient denies any chest pain or short of breath no palpitations. Respiratory: patient denied any cough is from production. No shortness of breath Neurologic: Patient denied any numbness or tingling headache. Musculoskeletal: Patient denies any complaints of joint swelling or deformity. Skin: Negative Psychiatric: Negative Endocrine: No heat or cold intolerance. No recent weight gain. Genitourinary: No dysuria or hematuria. All other 14 point ROS negative except the above Past Medical History Past Medical History: Hypertension, Memory Impairment, Osteoarthritis (OA) Additional Past Medical History / Comment(s): large lump left breast, chronic neck pain History of Any Multi-Drug Resistant Organisms: None Reported Past Surgical History: Section Additional Past Surgical History / Comment(s): X3, rectal surgery for an infection Past Anesthesia/Blood Transfusion Reactions: No Reported Reaction Past Psychological History: Anxiety Smoking Status: Former smoker Past Alcohol Use History: Occasional Past Drug Use History: None Reported - Past Family History Mother Family Medical History: Coronary Artery Disease (CAD) Sister(s) Family Medical History: AFIB, Myocardial Infarction ([place]) Father Family Medical History: Cancer Additional Family Medical History / Comment(s): from pancreatic CA Medications and Allergies Home Medications Medication Instructions Recorded Confirmed Type Levothyroxine Sodium [Synthroid] 50 mcg PO DAILY 10/08/17 07/21/19 History Bacillus Coagulans [Digestive 1 tab PO HS 07/21/19 07/21/19 History Advantage] Metoprolol Tartrate [Lopressor] 25 mg PO BID 07/21/19 07/21/19 History PARoxetine [Paxil] 10 mg PO DAILY 07/21/19 07/21/19 History Allergies Allergy/AdvReac Type Severity Reaction Status Date / Time seasonal allergies AdvReac Cough Uncoded 07/21/19 08:08 Physical Exam Vitals: Vital Signs Temp Pulse Pulse Resp BP BP Pulse Ox 07/21/19 12:00 97.8 F 71 18 112/55 98 07/21/19 08:00 97.7 F 66 18 131/61 94 L 07/21/19 05:29 97.9 F 63 18 139/63 93 L 07/21/19 04:55 56 L 20 120/65 97 07/21/19 04:12 68 07/21/19 04:08 98.2 F 68 18 140/79 97 Intake and Output 07/20/19 07/21/19 07/21/19 22:59 06:59 14:59 Intake Total 200 Balance 200 Intake: Oral 200 Other: Weight 68.039 kg PHYSICAL EXAMINATION: Patient is lying in the bed comfortably, no acute distress, awake alert and oriented.. HEENT: Normocephalic. Neck is supple. Pupils reactive. Nostrils clear. Oral cav ity is moist. Ears reveal no drainage. Neck reveals no JVD, carotid bruits, or thyromegaly. CHEST EXAMINATION: Trachea is central. Symmetrical expansion. Lung carmen clear to auscultation and percussion. CARDIAC: Normal S1, S2 with no gallops. No murmurs ABDOMEN: Soft. Bowel sounds normal. No organomegaly. No abdominal bruits. Extremities: reveal no edema. No clubbing or cyanosis Neurologically awake, alert, oriented x3 with well-coordinated movements. No focal deficits noted Skin: No rash or skin lesions. Psychiatric: Coperative. Nonsuicidal Musculoskeletal: No joint swelling or deformity. Normal range of motion. Results CBC & Chem 7: 07/21/19 10:18 07/21/19 04:07 Labs: Abnormal Lab Results - Last 24 Hours (Table) 07/21/19 07/21/19 Range/Units 04:07 09:18 Chloride 108 H (98-107) mmol/L BUN 22 H (7-17) mg/dL Glucose 113 H (74-99) mg/dL AST 43 H (14-36) U/L ALT 61 H (9-52) U/L Troponin I 0.059 H* (0.000-0.034) ng/mL Thrombosis Risk Factor Assmnt - DVT/VTE Prophylaxis DVT/VTE Prophylaxis: Pharmacologic Prophylaxis ordered - Choose All That Apply Each Risk Factor Represents 2 Points: Age 61-74 years Thrombosis Risk Factor Assessment Total Risk Factor Score: 2 Thrombosis Risk Factor Assessment Level: Low Risk Assessment and Plan Assessment: Chest pain with mildly elevated troponin level. Possible NSTEMI Hypertension Osteoarthritis Patient is still smoking Anxiety Chronic neck pain Plan: Patient will be continued on telemetry monitoring. Serial EKG and troponins. Started on heparin drip. 2-D echocardiogram was ordered. Cardiology is following. Further recommendations based on the clinical course. Currently patient is chest pain-free. Time with Patient: Greater than 30
[2019-07-22 06:02] LABS: Basophils % (A) 0 %; Eosinophils # (A) 0.2 k/uL (0-0.7); Eosinophils % (A) 5 %; HCT 41.1 % (34.0-46.0); HGB 13.7 gm/dL (11.4-16.0); Lymphocytes % (A) 37 %; MCH 28.8 pg (25.0-35.0); MCHC 33.4 g/dL (31.0-37.0); MCV 86.3 fL (80.0-100.0); Mean Platelet Volume 6.4; Monocytes # (A) 0.4 k/uL (0-1.0); Monocytes % (A) 7 %; Neutrophils # (A) 2.7 k/uL (1.3-7.7); Neutrophils % (A) 50 %; Platelet Count 197 k/uL (150-450); RBC 4.76 m/uL (3.80-5.40); RDW 12.6 % (11.5-15.5); WBC 5.4 k/uL (3.8-10.6)
[2019-07-22] MEDS: LEVOTHYROXINE 50 MCG TAB PO SCH (06:22)
[2019-07-22 06:38] LABS: Cholesterol 189 mg/dL (<200); HDL Cholesterol 53 mg/dL (40-60); LDL Cholesterol,Calculated 110 mg/dL (0-99); Triglycerides 132 mg/dL (<150)
[2019-07-22 08:56] VITALS: RESP 14
[2019-07-22] MEDS: METOPROLOL TARTRATE 25 MG TAB PO SCH (08:56)
[2019-07-22] MEDS ORDERED: PARoxetine 10 MG TAB PO SCH (09:00)
[2019-07-22] MEDS ORDERED: ASPIRIN 325 MG TAB PO SCH (09:00)
[2019-07-22 11:58] VITALS: BP 124/58; PULSE 51; TEMP 97.2
--- NOTE | 2019-07-22 12:15 | P.PN ---
Subjective Progress Note Date: 07/22/19 Principal diagnosis: Chest pain This is a pleasant 64-year-old female patient who is somewhat is a poor historian was brought to the emergency room by ambulance because of chest d iscomfort. The patient does have a past medical history significant for hypertension. She underwent a heart catheterization 2 years ago after she presented with chest discomfort and after abnormal stress test and the heart catheterization revealed normal coronaries. This time she describes discomfort in the mid of the chest, as a sharp kind of discomfort, without any radiation to the arm or neck or shoulders, and without any associated symptoms of shortness of breath, dizziness, heart racing, or syncope. No sweating. The EKG showed sinus rhythm without any significant ST or T-wave abnormalities. The cardiac enzymes were checked and the second set of troponin came in to be slightly abno rmal. On follow-up with the patient today, 07/22/2019, the patient has been chest pain-free. I did tell the patient the possible need to undergo coronary angiogram but the patient stated that she does not have any insurance and she does not want to have the cath done. Having said that, from a cardiac vascular standpoint of view, the patient can be discharged home today and follow-up as an outpatient. I would discharge the patient on aspirin as well as metoprolol. Objective - Vital Signs Vital signs: Vital Signs Temp 97.2 F L 07/22/19 11:58 Pulse 51 L 07/22/19 11:58 Resp 14 07/22/19 11:58 BP 124/58 07/22/19 11:58 Pulse Ox 97 07/22/19 08:00 Intake & Output 07/21/19 07/22/19 07/22/19 18:59 06:59 18:59 Intake Total 500 400 317.04 Balance 500 400 317.04 Weight 71.1 kg Intake: IV 60 160 .9 @ 20 60 160 Intake, IV Titration 157.04 Amount Heparin Sod,Pork in 0.45% 157.04 NaCl 25,000 unit In 0.45 % NaCl 1 250ml.bag @ 12 UNITS/KG/HR 8.165 mls/hr IV .Q24H TRINI Rx#: [id number] Oral 440 400 Other: Voiding Method Toilet Toilet # Voids 1 - Constitutional General appearance: Present: no acute distress - Respiratory Respiratory: bilateral: CTA - Cardiovascular Rhythm: regular Heart sounds: normal: S1, S2 - Labs CBC & Chem 7: 07/22/19 05:34 07/21/19 04:07 Labs: Abnormal Lab Results - Last 24 Hours (Table) 07/21/19 07/22/19 07/22/19 Range/Units 20:01 05:34 05:34 APTT 64.6 H 55.7 H (22.0-30.0) sec LDL Cholesterol, Calc 110 H (0-99) mg/dL Assessment and Plan Assessment: Assessment #1 atypical chest discomfort associated was mildly abnormal cardiac enzymes #2 hypertension Plan The patient can be discharged home Follow-up as an outpatient
--- NOTE | 2019-07-31 20:43 | P.DS ---
Providers Date of admission: 07/21/19 05:04 Expected date of discharge: 07/22/19 Attending physician: Chemo Odonnell Consults: 07/21/19 05:04 Consult Physician Urgent Consulting Provider: Jerod Jimenez Consult Reason/Comments: chest pain Do you want consulting provider notified?: Yes Primary care physician: Fabiola Collier [place] [facility] Course: Discharge diagnosis Chest pain with mildly elevated troponin level. Possible NSTEMI Hypertension Osteoarthritis Patient is still smoking Anxiety Chronic neck pain Hospital course Patient is a 64-year-old female with a known history of hypertension, osteoarthritis and memory impairment came to ER with complaints of chest pain. Patient says that at around 3 AM last night she had an episode of chest pain when she woke up to use the bathroom. Patient has been having on and off chest pains usually. Along with the chest read patient felt left arm numbness which made her to come to Hospital. Pain is mainly sharp lasting about a few minutes. No associated nausea vomiting or abdominal pain. Patient did have mild diaphoresis. No headache or dizziness or lightheadedness. EMS was called and patient was brought to the hospital. Denied any recent illnesses. No cough or sputum production. No recent travel. EKG showed normal sinus rhythm without any significant ST-T wave changes. Troponin 0.012, 0.029 and 0.020 Chest x-ray showed no acute cardiopulmonary process. D-dimer not elevated. Patient says that she had stress test done about 2 years ago Plan: Patient was continued on telemetry monitoring. Serial EKG and troponins. Started on heparin drip. 2-D echocardiogram was ordered. Cardiology recommends the need to undergo coronary angiogram but the patient stated that she does not have any insurance and she does not want to have the cath done. Patient is currently chest pain-free. Patient will be discharged home with aspirin and metoprolol per cardiology recommendations. PHYSICAL EXAMINATION: Patient is lying in the bed comfortably, no acute distress, awake alert and oriented.. HEENT: Normocephalic. Neck is supple. Pupils reactive. Nostrils clear. Oral cavity is moist. Ears reveal no drainage. Neck reveals no JVD, carotid bruits, or thyromegaly. CHEST EXAMINATION: Trachea is central. Symmetrical expansion. Lung carmen clear to auscultation and percussion. CARDIAC: Normal S1, S2 with no gallops. No murmurs ABDOMEN: Soft. Bowel sounds normal. No organomegaly. No abdominal bruits. Extremities: reveal no edema. No clubbing or cyanosis Neurologically awake, alert, oriented x3 with well-coordinated movements. No focal deficits noted Skin: No rash or skin lesions. Psychiatric: Coperative. Nonsuicidal Musculoskeletal: No joint swelling or deformity. Normal range of motion. Vital Signs Temp 97.2 F L 07/22/19 11:58 Pulse 51 L 07/22/19 11:58 Resp 14 07/22/19 11:58 BP 124/58 07/22/19 11:58 Pulse Ox 97 07/22/19 08:00 Patient Condition at Discharge: Fair Plan - Discharge Summary Discharge Rx Participant: No New Discharge Prescriptions: New Aspirin 81 mg PO DAILY #30 chewable Atorvastatin [Lipitor] 10 mg PO HS #30 tab Continue Levothyroxine Sodium [Synthroid] 50 mcg PO DAILY PARoxetine [Paxil] 10 mg PO DAILY Metoprolol Tartrate [Lopressor] 25 mg PO BID Bacillus Coagulans [Digestive Advantage] 1 tab PO HS Discharge Medication List Levothyroxine Sodium [Synthroid] 50 mcg PO DAILY 10/08/17 [History] Bacillus Coagulans [Digestive Advantage] 1 tab PO HS 07/21/19 [History] Metoprolol Tartrate [Lopressor] 25 mg PO BID 07/21/19 [History] PARoxetine [Paxil] 10 mg PO DAILY 07/21/19 [History] Aspirin 81 mg PO DAILY #30 chewable 07/22/19 [Rx] Atorvastatin [Lipitor] 10 mg PO HS #30 tab 07/22/19 [Rx] Follow up Appointment(s)/Referral(s): Guicho Woodson MD [STAFF PHYSICIAN] - 1 Week Fabiola Collier MD [Primary Care Provider] - 1-2 days Patient Instructions/Handouts: Chest Pain (DC) Discharge Disposition: HOME SELF-CARE
== END 2019-07-22 13:41 | disposition home or self-care (01) ==
LOC: EC 03:59 → 3SCARD 05:04
PROVIDERS: ADMIT Hospitalist; ATTEND Hospitalist
DX: R07.89 Other chest pain (principal); R79.89 Other specified abnormal findings of blood chemistry; R41.3 Other amnesia; R20.0 Anesthesia of skin; R61 Generalized hyperhidrosis; R14.0 Abdominal distension (gaseous); I10 Essential (primary) hypertension; M19.90 Unspecified osteoarthritis, unspecified site; F17.200 Nicotine dependence, unspecified, uncomplicated; F41.9 Anxiety disorder, unspecified; G89.29 Other chronic pain; M54.2 Cervicalgia; R74.8 Abnormal levels of other serum enzymes; N63.0 Unspecified lump in unspecified breast; Z79.890 Hormone replacement therapy; Z79.899 Other long term (current) drug therapy; J30.2 Other seasonal allergic rhinitis; Z82.49 Family history of ischemic heart disease and other diseases of the circulatory system; Z80.0 Family history of malignant neoplasm of digestive organs; Z91.19 Patient's noncompliance with other medical treatment and regimen
CPT/HCPCS: 99285; 96376; 96365; 96366 ×2; 36415; 93005; 93306; 85379; 80061; 80053; 83735; 84484; 85025 ×2; 85610; 85730 ×2; 71046; G0378 ×2; J1644 ×2

== ENCOUNTER 2022-03-04 08:39 | Day surgery (SDC) | payer MEDICARE ==
[2022-03-02 15:21] VITALS: BMI 30.2
[2022-03-04] MEDS ORDERED: LACTATED RINGERS 1,000 ML IV SCH (09:19)
[2022-03-04 09:34] VITALS: TEMP 97.6
[2022-03-04] MEDS ORDERED: PROPOFOL 10 MG/ML 20 ML VIAL IV ONE (09:48)
[2022-03-04] MEDS ORDERED: LIDOCAINE 2% INJ 20 MG/ML (2 ML VIAL) ONE (09:48)
--- NOTE | 2022-03-04 09:49 | P.GSHP ---
History of Present Illness H&P Date: 03/04/22 Chief Complaint: Screening colonoscopy This a 66-year-old female presents today for screening colonoscopy. Patient denies any significant GI complaints. Past Medical History Past Medical History: Chest Pain / Angina, Hyperlipidemia, Hypertension, Memory Impairment, Myocardial Infarction ([place]), Osteoarthritis (OA), Thyroid Disorder Additional Past Medical History / Comment(s): chronic neck pain , "slight heart attack", palpitations, elevated liver enzymes, hx "rectal infection" Last Myocardial Infarction Date:: 2019 History of Any Multi-Drug Resistant Organisms: None Reported Past Surgical History: Section Additional Past Surgical History / Comment(s): X3, colonoscopy Past Anesthesia/Blood Transfusion Reactions: No Reported Reaction Smoking Status: Former smoker - Past Family History Mother Family Medical History: Coronary Artery Disease (CAD) Sister(s) Family Medical History: Cancer Additional Family Medical History / Comment(s): colon Father Family Medical History: Cancer Additional Family Medical History / Comment(s): from pancreatic CA Medications and Allergies Home Medications Medication Instructions Recorded Confirmed Type Levothyroxine Sodium [Synthroid] 50 mcg PO MOTUWETHFR 10/08/17 03/02/22 History Metoprolol Tartrate [Lopressor] 25 mg PO BID 07/21/19 03/02/22 History PARoxetine [Paxil] 10 mg PO DAILY 07/21/19 03/02/22 History Aspirin 81 mg PO DAILY #30 chewable 07/22/19 03/02/22 Rx Atorvastatin [Lipitor] 10 mg PO DAILY 03/02/22 03/02/22 History Chlorpheniramine Maleate 4 mg PO BID 03/02/22 03/02/22 History Levothyroxine Sodium [Synthroid] 25 mcg PO DAILY 03/02/22 03/02/22 History Omeprazole [PriLOSEC] 20 mg PO W/LUNCH 03/02/22 03/02/22 History Allergies Allergy/AdvReac Type Severity Reaction Status Date / Time seasonal allergies AdvReac Cough Uncoded 03/04/22 09:25 Surgical - Exam Vital Signs Temp Pulse Resp BP Pulse Ox 97.6 F 67 16 132/70 96 03/04/22 09:32 03/04/22 09:32 03/04/22 09:32 03/04/22 09:32 03/04/22 09:32 - General well developed, well nourished, no distress - Eyes PERRL - ENT normal pinna - Neck no masses - Respiratory normal expansion - Cardiovascular Rhythm: regular - Abdomen Abdomen: soft, non tender Assessment and Plan Assessment: We'll perform screening colonoscopy
--- NOTE | 2022-03-04 09:58 | P.OP ---
Date of Procedure: 03/04/22 Preoperative Diagnosis: Screening colonoscopy Postoperative Diagnosis: Normal colonoscopy Procedure(s) Performed: Colonoscopy Anesthesia: MAC Surgeon: Nigel Wong Pathology: none sent Condition: stable Disposition: PACU Description of Procedure: PROCEDURE: The patient was placed on the endoscopy table in the lateral position. Digital rectal examination was performed which revealed no abnormalities. . Flexible colonoscope was then placed in the patient's anus and passed throughout the entire colon. The ileocecal valve was visualized. The cecum, ascending, transverse, descending and sigmoid colon were normal. The rectum was normal as well. There were no masses, polyps or diverticula noted in the entire colon. SUMMARY OF FINDINGS: Normal colonoscopy.
[2022-03-04 10:07] VITALS: BP 103/64; PULSE 72; RESP 12
== END 2022-03-04 10:40 | disposition home or self-care (01) ==
LOC: ORWHC2ENDO 08:39
PROVIDERS: ATTEND Surgery
DX: Z12.11 Encounter for screening for malignant neoplasm of colon (principal); E78.5 Hyperlipidemia, unspecified; I10 Essential (primary) hypertension; I25.2 Old myocardial infarction; M19.90 Unspecified osteoarthritis, unspecified site; Z79.82 Long term (current) use of aspirin; Z82.49 Family history of ischemic heart disease and other diseases of the circulatory system; Z87.891 Personal history of nicotine dependence
CPT/HCPCS: G0121; J2704; J2001

== ENCOUNTER 2024-03-11 13:06 | Emergency (ER) | payer MEDICARE ==
--- NOTE | 2024-03-11 13:29 | ED ---
Back Pain HPI - General Chief Complaint: Back Pain/Injury Stated Complaint: back pain Time Seen by Provider: 03/11/24 13:12 Source: patient, RN notes reviewed Mode of arrival: ambulatory Limitations: no limitations - History of Present Illness Initial Comments: This is a 68 year old female who presents to the emergency department for back pain. States that it started 4 days ago. It was initially intermittent in nature, however today it has been constant. Pain is essentially in the center of the back between her shoulder blades. She is concerned that it could be cardiac related. Unsure how to describe this pain. Denies any radiation of pain or nausea/vomiting. States that she has a leaky valve, but denies any history of heart attacks. She does note being more active than usual lately. MD Complaint: back pain - Related Data Home Medications Medication Instructions Recorded Confirmed Levothyroxine Sodium [Synthroid] 50 mcg PO MOTUWETHFR 10/08/17 03/02/22 Metoprolol Tartrate [Lopressor] 25 mg PO BID 07/21/19 03/02/22 PARoxetine [Paxil] 10 mg PO DAILY 07/21/19 03/02/22 Atorvastatin [Lipitor] 10 mg PO DAILY 03/02/22 03/02/22 Chlorpheniramine Maleate 4 mg PO BID 03/02/22 03/02/22 [Chlor-Trimeton] Levothyroxine Sodium [Synthroid] 25 mcg PO DAILY 03/02/22 03/02/22 Omeprazole [PriLOSEC] 20 mg PO W/LUNCH 03/02/22 03/02/22 Previous Rx's Medication Instructions Recorded Aspirin 81 mg PO DAILY #30 chewable 07/22/19 Lidocaine 5% Patch [Lidoderm 5% 1 patch TOPICAL DAILY PRN #30 patch 03/11/24 Patch] Naproxen Sodium 550 mg PO BID PRN #30 tablet 03/11/24 methocarbamoL [Robaxin-750] 1,500 mg PO TID PRN #30 tab 03/11/24 Allergies Allergy/AdvReac Type Severity Reaction Status Date / Time seasonal allergies AdvReac Cough Uncoded 03/11/24 13:31 Review of Systems ROS Statement: Those systems with pertinent positive or pertinent negative responses have been documented in the HPI. ROS Other: All systems not noted in ROS Statement are negative. Past Medical History Past Medical History: Chest Pain / Angina, Hyperlipidemia, Hypertension, Memory Impairment, Myocardial Infarction (NE), Osteoarthritis (OA), Thyroid Disorder Additional Past Medical History / Comment(s): chronic neck pain , "slight heart attack", palpitations, elevated liver enzymes, hx "rectal infection" Last Myocardial Infarction Date:: 2019 History of Any Multi-Drug Resistant Organisms: None Reported Past Surgical History: Section Additional Past Surgical History / Comment(s): X3, colonoscopy Past Anesthesia/Blood Transfusion Reactions: No Reported Reaction Smoking Status: Former smoker - Past Family History Mother Family Medical History: Coronary Artery Disease (CAD) Sister(s) Family Medical History: Cancer Additional Family Medical History / Comment(s): colon Father Family Medical History: Cancer Additional Family Medical History / Comment(s): from pancreatic CA General Exam Limitations: no limitations General appearance: alert, in no apparent distress Head exam: Present: atraumatic, normocephalic, normal inspection Respiratory exam: Present: normal lung sounds bilaterally. Absent: respiratory distress, wheezes, rales, rhonchi, stridor Cardiovascular Exam: Present: regular rate, normal rhythm, normal heart sounds. Absent: systolic murmur, diastolic murmur, rubs, gallop, clicks GI/Abdominal exam: Present: soft, normal bowel sounds. Absent: distended, tenderness, guarding, rebound, rigid Back exam: Present: tenderness (Mid upper back) Neurological exam: Present: alert, oriented X3, CN II-XII intact Psychiatric exam: Present: normal affect, normal mood Skin exam: Present: warm, dry, intact, normal color. Absent: rash Course Vital Signs 03/11/24 03/11/24 13:28 15:53 Temperature 98.0 F Pulse Rate 68 64 Respiratory 18 18 Rate Blood Pressure 133/71 130/92 O2 Sat by Pulse 96 98 Oximetry Medical Decision Making - Medical Decision Making This is a 68 year old female who presents to the emergency department for back pain. Was pt. sent in by a medical professional or institution? @ -No Did you speak to anyone other than the patient for history? @ -No Did you review nursing and triage notes? @ -Yes, and I agree, it is accurate with regards to the patient's symptoms. Were old charts reviewed? @ -No Differential Diagnosis? @ -Differential Back Pain: Strain, zoster, cauda equina syndrome, epidural abscess, vertebral osteomyelitis, discitis, fracture, subluxation, disc herniation, DJD, spinal stenosis, dissection, AAA, pancreatitis, peptic ulcer disease, pyelonephritis, kidney stone, this is not meant to be an all-inclusive list. EKG interpreted by me (3pts min.)? @ -EKG interpreted by me demonstrating the following: Sinus bradycardia. Ventricular rate 52 bpm, DC interval 156 ms, QRS duration 94 ms, QTc 395 ms. X-rays interpreted by me (1pt min.)? @ -Chest x-ray obtained, my interpretation identifies no localized conso lidations or infiltrates. CT interpreted by me (1pt min.)? @ -Not obtained U/S interpreted by me (1pt. min.)? @ -Not obtained What testing was considered but not performed? (CT, X-rays, U/S, labs)? Why? @ -None What meds were considered but not given? Why? @ -None Did you discuss the management of the patient with other professionals? @ -No Did you reconcile home meds? @ -No Was smoking cessation discussed for >3mins.? @ -No Was critical care preformed (if so, how long)? @ -No Were there social determinants of health that impacted care today? How? (Homelessness, low income, unemployed, alcoholism, drug addiction, transportation, low edu. Level, literacy, decrease access to med. care, retirement, rehab)? @ -No Was there de-escalation of care discussed even if they declined? (Discuss DNR or withdrawal of care, Hospice)? @ -No What co-morbidities impacted this encounter? (DM, HTN, Smoking, COPD, CAD, Cancer, CVA, Hep., AIDS, mental health diagnosis, sleep apnea, morbid obesity)? @ -HLD, HTN Was patient admitted / discharged? @ -Discharged. Lab work unremarkable, including a negative troponin and negative D-dimer. Chest x-ray reveals no acute process. Patient's symptoms were reproducible on exam and she does note being more physically active lately. Additionally, this has been present over the last few days. While the pain had been constant earlier today, by the time she got to the emergency department, it had improved significantly. She declined the need for any pain medication in the emergency department. Symptoms are likely musculoskeletal in nature. Prescription for Robaxin, naproxen, and lidocaine patches provided with dosing instructions reviewed. She was given strict return parameters and advised to follow-up with her primary care provider. Undiagnosed new problem with uncertain prognosis? @ -None Drug Therapy requiring intensive monitoring for toxicity (Heparin, Nitro, Insulin, Cardizem)? @ -None Were any procedures done? @ -None Diagnosis/symptom? @ -Back pain Acute, or Chronic, or Acute on Chronic? @ -Acute Uncomplicated (without systemic symptoms) or Complicated (systemic symptoms)? @ -Uncomplicated Side effects of treatment? @ -None Exacerbation, Progression, or Severe Exacerbation] @ -Not applicable Poses a threat to life or bodily function? @ -No Return precautions reviewed in depth, the patient is instructed to return to the emergency department with any new, worsening, or concerning symptoms. Patient verbalized understanding. This case was discussed in detail with the attending ED physician, Dr. Brown. Presentation, findings, and treatment plan discussed in detail as well. - Lab Data Result diagrams: 03/11/24 14:01 03/11/24 14:01 Lab Results 03/11/24 03/11/24 03/11/24 Range/Units 14:01 14:01 14:01 WBC 4.6 (3.8-10.6) k/uL RBC 5.17 (3.80-5.40) m/uL Hgb 14.7 (11.4-16.0) gm/dL Hct 44.7 (34.0-46.0) % MCV 86.4 (80.0-100.0) fL MCH 28.5 (25.0-35.0) pg MCHC 33.0 (31.0-37.0) g/dL RDW 12.7 (11.5-15.5) % Plt Count 189 (150-450) k/uL MPV 8.1 Neutrophils % 51 % Lymphocytes % 32 % Monocytes % 9 % Eosinophils % 4 % Basophils % 1 % Neutrophils # 2.4 (1.3-7.7) k/uL Lymphocytes # 1.5 (1.0-4.8) k/uL Monocytes # 0.4 (0-1.0) k/uL Eosinophils # 0.2 (0-0.7) k/uL Basophils # 0.0 (0-0.2) k/uL PT 10.6 (10.0-12.5) sec INR 1.0 (<1.2) APTT 22.6 (22.0-30.0) sec D-Dimer (<0.60) mg/L FEU Sodium 141 (137-145) mmol/L Potassium 4.2 (3.5-5.1) mmol/L Chloride 107 (98-107) mmol/L Carbon Dioxide 28 (22-30) mmol/L Anion Gap 6 mmol/L BUN 17 (7-17) mg/dL Creatinine 0.69 (0.52-1.04) mg/dL Est GFR (CKD-EPI)AfAm >90 (>60 ml/min/1.73 sqM) Est GFR (CKD-EPI)NonAf 90 (>60 ml/min/1.73 sqM) Glucose 78 (74-99) mg/dL Calcium 10.0 (8.4-10.2) mg/dL Magnesium 2.0 (1.6-2.3) mg/dL Total Bilirubin 1.1 (0.2-1.3) mg/dL AST 30 (14-36) U/L ALT 27 (4-34) U/L Alkaline Phosphatase 82 (38-126) U/L Troponin I (0.000-0.034) ng/mL Total Protein 7.0 (6.3-8.2) g/dL Albumin 4.5 (3.5-5.0) g/dL Amylase 54 (30-110) U/L Lipase 90 (23-300) U/L Urine Color Urine Appearance (Clear) Urine pH (5.0-8.0) Ur Specific Everetts (1.001-1.035) Urine Protein (Negative) Urine Glucose (UA) (Negative) Urine Ketones (Negative) Urine Blood (Negative) Urine Nitrite (Negative) Urine Bilirubin (Negative) Urine Urobilinogen (<2.0) mg/dL Ur Leukocyte Esterase (Negative) Urine RBC (0-5) /hpf Urine WBC (0-5) /hpf Ur Squamous Epith Cells (0-4) /hpf Urine Bacteria (None) /hpf Urine Mucus (None) /hpf 03/11/24 03/11/24 03/11/24 Range/Units 14:01 14:01 14:01 WBC (3.8-10.6) k/uL RBC (3.80-5.40) m/uL Hgb (11.4-16.0) gm/dL Hct (34.0-46.0) % MCV (80.0-100.0) fL MCH (25.0-35.0) pg MCHC (31.0-37.0) g/dL RDW (11.5-15.5) % Plt Count (150-450) k/uL MPV Neutrophils % % Lymphocytes % % Monocytes % % Eosinophils % % Basophils % % Neutrophils # (1.3-7.7) k/uL Lymphocytes # (1.0-4.8) k/uL Monocytes # (0-1.0) k/uL Eosinophils # (0-0.7) k/uL Basophils # (0-0.2) k/uL PT (10.0-12.5) sec INR (<1.2) APTT (22.0-30.0) sec D-Dimer 0.37 (<0.60) mg/L FEU Sodium (137-145) mmol/L Potassium (3.5-5.1) mmol/L Chloride (98-107) mmol/L Carbon Dioxide (22-30) mmol/L Anion Gap mmol/L BUN (7-17) mg/dL Creatinine (0.52-1.04) mg/dL Est GFR (CKD-EPI)AfAm (>60 ml/min/1.73 sqM) Est GFR (CKD-EPI)NonAf (>60 ml/min/1.73 sqM) Glucose (74-99) mg/dL Calcium (8.4-10.2) mg/dL Magnesium (1.6-2.3) mg/dL Total Bilirubin (0.2-1.3) mg/dL AST (14-36) U/L ALT (4-34) U/L Alkaline Phosphatase (38-126) U/L Troponin I <0.012 (0.000-0.034) ng/mL Total Protein (6.3-8.2) g/dL Albumin (3.5-5.0) g/dL Amylase (30-110) U/L Lipase (23-300) U/L Urine Color Yellow Urine Appearance Clear (Clear) Urine pH 5.5 (5.0-8.0) Ur Specific [place] 1.025 (1.001-1.035) Urine Protein Negative (Negative) Urine Glucose (UA) Negative (Negative) Urine Ketones Negative (Negative) Urine Blood Negative (Negative) Urine Nitrite Negative (Negative) Urine Bilirubin Negative (Negative) Urine Urobilinogen <2.0 (<2.0) mg/dL Ur Leukocyte Esterase Small H (Negative) Urine RBC 1 (0-5) /hpf Urine WBC 3 (0-5) /hpf Ur Squamous Epith Cells 3 (0-4) /hpf Urine Bacteria Rare H (None) /hpf Urine Mucus Few H (None) /hpf - Radiology Data Radiology results: report reviewed, image reviewed Disposition Clinical Impression: Back pain Disposition: HOME SELF-CARE Instructions (If sedation given, give patient instructions): Back Pain (ED) Additional Instructions: Return to the emergency department with any new, worsening, or concerning symptoms. Take the naproxen twice daily as needed with Tylenol. Do not take any other anti-inflammatories such as ibuprofen with this, take one or the other. You can take the Robaxin as 1 to 2 tablets up to 3-4 times daily. Be aware that this may make you drowsy. You can also try applying lidocaine patches. Follow up with your primary care provider in 1-2 days. Prescriptions: Lidocaine 5% Patch [Lidoderm 5% Patch] 1 patch TOPICAL DAILY PRN #30 patch PRN Reason: Pain Naproxen Sodium 550 mg PO BID PRN #30 tablet PRN Reason: Pain methocarbamoL [Robaxin-750] 1,500 mg PO TID PRN #30 tab PRN Reason: Pain Is patient prescribed a controlled substance at d/c from ED?: No Referrals: Fabiola Collier MD [Primary Care Provider] - 1-2 days Time of Disposition: 16:15
[2024-03-11 14:12] VITALS: RESP 18; TEMP 98
[2024-03-11 15:11] LABS: Basophils % (A) 1 %; Eosinophils # (A) 0.2 k/uL (0-0.7); Eosinophils % (A) 4 %; HCT 44.7 % (34.0-46.0); HGB 14.7 gm/dL (11.4-16.0); Lymphocytes # (A) 1.5 k/uL (1.0-4.8); Lymphocytes % (A) 32 %; MCH 28.5 pg (25.0-35.0); MCV 86.4 fL (80.0-100.0); Mean Platelet Volume 8.1; Monocytes # (A) 0.4 k/uL (0-1.0); Monocytes % (A) 9 %; Neutrophils # (A) 2.4 k/uL (1.3-7.7); Neutrophils % (A) 51 %; Platelet Count 189 k/uL (150-450); RBC 5.17 m/uL (3.80-5.40); RDW 12.7 % (11.5-15.5); WBC 4.6 k/uL (3.8-10.6)
[2024-03-11 15:21] LABS: Appearance,Urine Clear (Clear); Bacteria,Urine Rare /hpf; Bilirubin,Urine Negative (Negative); Blood,Urine Negative (Negative); Color,Urine Yellow; Glucose,Urine (UA) Negative (Negative); Ketones,Urine Negative (Negative); Leukocyte Esterase,Urine Small (Negative); Mucus,Urine Few /hpf; Nitrite,Urine Negative (Negative); PH, Urine 5.5 (5.0-8.0); Protein,Urine Negative (Negative); RBC,Urine 1 /hpf (0-5); Specific Gravity,Urine 1.025 (1.001-1.035); Squamous Epithelial Cell,Urine 3 /hpf (0-4); Urobilinogen,Urine <2.0 mg/dL (<2.0); WBC,Urine 3 /hpf (0-5)
[2024-03-11 15:22] LABS: ALT 27 U/L (4-34); AST 30 U/L (14-36); African American GFR (CKD) >90 (>60 ml/min/1.73 sqM); Albumin 4.5 g/dL (3.5-5.0); Alkaline Phosphatase 82 U/L (38-126); Amylase 54 U/L (30-110); Anion Gap 6 mmol/L; Blood Urea Nitrogen 17 mg/dL (7-17); Carbon Dioxide 28 mmol/L (22-30); Chloride 107 mmol/L (98-107); Glucose 78 mg/dL (74-99); Lipase 90 U/L (23-300); Non-African American GFR(CKD) 90 (>60 ml/min/1.73 sqM); Partial Thromboplastin Time 22.6 sec (22.0-30.0); Potassium 4.2 mmol/L (3.5-5.1); Prothrombin Time 10.6 sec (10.0-12.5); Sodium 141 mmol/L (137-145); Total Bilirubin 1.1 mg/dL (0.2-1.3)
--- NOTE | 2024-03-11 15:53 | XR ---
EXAMINATION TYPE: XR chest 2V DATE OF EXAM: 03/11/2024 3:15 PM CLINICAL INDICATION:Female, 68 years old with history of Chest Pain; COMPARISON: Chest radiographs from 07/21/2019 TECHNIQUE: XR chest 2V Frontal and lateral views of the chest. FINDINGS: Lungs/Pleura: There is no evidence of pleural effusion, focal consolidation, or pneumothorax. Pulmonary vascularity: Unremarkable. Heart/mediastinum: Cardiomediastinal silhouette is unremarkable. Musculoskeletal: No acute osseous pathology. IMPRESSION: No acute cardiopulmonary disease/process.
[2024-03-11 16:29] VITALS: BP 130/92; PULSE 64
== END 2024-03-11 16:46 | disposition home or self-care (01) ==
LOC: EC 13:06
DX: M54.6 Pain in thoracic spine (principal); I10 Essential (primary) hypertension; E78.5 Hyperlipidemia, unspecified; R00.1 Bradycardia, unspecified; Z87.891 Personal history of nicotine dependence; Z91.048 Other nonmedicinal substance allergy status; Z79.899 Other long term (current) drug therapy
CPT/HCPCS: 36415; 71046; 80053; 81001; 82150; 83690; 83735; 84484; 85025; 85379; 85610; 85730; 93005; 99284